=== PATIENT | male | born 1980 | race Caucasian/White ===

== ENCOUNTER 2023-07-11 14:34 | Outpatient (AMB) | payer OTHER, SELFPAY ==
--- NOTE | 2023-07-11 14:37 | AM.OFFWIN_ITS ---
Intake Vital Signs 07/11/23 14:39 Height 5 ft 10.08 in Weight 182 lb 15.739 oz BMI 26.2 BP 112/62 Blood Pressure Location Lt brachial Position Sitting Pulse 70 Pulse Source Pulse Oximeter Temp 97.8 F Temp Source Oral Pulse Oximetry (%) 98 Oxygen Delivery Method Room Air Intake Visit Reasons: [employer] pink eye both eyes Intake Note: pt is here for c/o pnk eyes in both eyes 3 days Patient Tobacco Use Status: Never used Tobacco Allergies No Known Allergies Allergy (Verified 07/11/23 14:37) Do you need a note to return to daycare/school/sports/work: No HPI HPI Comments History of Present Illness Details 43 y/o male [place] speaking patient wh o presents to walk in clinic with c/o URI symptoms. Pt reports that symptoms started few days ago. He also c/o left eye pain and redness since this morning. Denies vision changes. PFSH Social History Patient Tobacco Use Status: Never used Tobacco Review of Systems Const All systems reviewed & are unremarkable except as noted in HPI and below Physical Exam Vital Signs: Last Vital Signs Temp 97.8 F 07/11/23 14:39 Pulse 70 07/11/23 14:39 BP 112/62 07/11/23 14:39 Pulse Ox 98 07/11/23 14:39 Oxygen Delivery Method Room Air 07/11/23 14:39 BMI result Body Mass Index 26.2 Const General: comfortable and no acute distress HEENT Head: Yes normocephalic and Yes atraumatic Ears: external ears normal and TM's normal bilaterally General nose exam: Abnormal mucous membranes and turbinates present boggy and erythematous Face and sinus: Yes sinuses nontender Mouth: moist mucous membranes Throat: Yes posterior oropharynx normal Eyes Eyelids: Yes eyelids normal Conjunctivae: conjunctival abnormal (Redness) left Corneas: corneas normal Pupils: Equal, round and reactive pupils present EOM: EOMs intact bilaterally Direct Ophthalmoscopy: normal light reflex Resp Effort & Inspection: normal respiratory effort and able to speak in complete sentences Auscultation: clear to auscultation bilaterally, no crackles, no rales, no rhonchi and no wheezes Cardio Rate: regular rate Rhythm: regular rhythm Neuro Cranial nerves: Yes Equal, round and reactive pupils present Results AMB Urinalysis, Automated UA Leukoctes 0 Camelia/uL Last Edit by Arthur Ramsey CMA on 07/11/23 14:58 UA Nitrite Negative Last Edit by Arthur Ramsey CMA on 07/11/23 14:58 UA Urobilinogen 0.2 mg/dL Last Edit by Arthur Ramsey CMA on 07/11/23 14 :58 UA Protein 0 mg/dL Last Edit by Arthur Ramsey CMA on 07/11/23 14:58 UA pH 7.5 Last Edit by Arthur Ramsey CMA on 07/11/23 14:58 UA Blood 0 [place]/uL Last Edit by Arthur Ramsey CMA on 07/11/23 14:58 UA Specific [place] 1.015 Last Edit by Arthur Ramsey CMA on 07/11/23 14:58 UA Ketone Negative Last Edit by Arthur Ramsey CMA on 07/11/23 14:58 UA Bilirubin 0 mg/dL Last Edit by Arthur Ramsey CMA on 07/11/23 14:58 UA Glucose 0 mg/dL Last Edit by Arthur Ramsey CMA on 07/11/23 14:58 Results Reviewed Results Reviewed: Laboratory Last Values Urine pH (Auto) 7.5 07/11/23 14:58 Specific [place] (Auto) 1.015 07/11/23 14:58 Urine Protein (Auto) 0 mg/dL 07/11/23 14:58 Glucose (UA)(Auto) 0 mg/dL 07/11/23 14:58 Urine Ketones (Auto) Negative 07/11/23 14:58 Urine Blood (Auto) 0 [place]/uL 07/11/23 14:58 Urine Nitrite (Auto) Negative 07/11/23 14:58 Urine Bilirubin (Auto) 0 mg/dL 07/11/23 14:58 Urine Urobilinogen (Auto) 0.2 mg/dL 07/11/23 14:58 Leukocyte Esterase (Auto) 0 [place]/uL 07/11/23 14:58 Assessment & Plan Assessment & Plan (1) Allergic rhinitis: Code(s): J30.9 - Allergic rhinitis, unspecified Qualifiers: Allergic rhinitis seasonality: seasonal Allergic rhinitis trigger: unspecified Qualified Code(s): J30.2 - Other seasonal allergic rhinitis Plan: - Flonase [place] as directed - OTC cold remedies. - rest (2) Conjunctivitis: Code(s): H10.9 - Unspecified conjunctivitis Qualifiers: Acute conjunctivitis type: unspecified Conjunctivitis type: acute [place]ality: left Qualified Code(s): H10.32 - Unspecified acute conjunctivitis, left eye Plan: - Wash eyes with warm water - Keep eyes clean and dry - Avoid rubbing eyes Orders: Orders AMB Urinalysis Automated Today Z13.9 - Encounter for screening, unspecified Medications: New ciprofloxacin HCl 0.3% 1 drp ophthalmic (eye) Q4H 5 days 5 mL 0RF fluticasone propionate 50 mcg/actuation administer into each nostril 1 spray intranasal BID PRN 16 grams 0RF nasal congestion J30.2 - Other seasonal allergic rhinitis Coding Level of Care Code New Pt Level 3 (35727) Diagnoses Seasonal allergic rhinitis, unspecified trigger J30.2 Allergic rhinitis seasonality: seasonal Allergic rhinitis trigger: unspecified Acute conjunctivitis of left eye, unspecified acute conjunctivitis type H10.32 Acute conjunctivitis type: unspecified Conjunctivitis type: acute Laterality: left Time Spent (min) 15
[2023-07-11 14:39] VITALS: BP 112/62; PULSE 70; TEMP 36.6; O2SAT 98; BMI 26.2
== END 2023-07-11 15:20 | disposition home or self-care (01) ==
PROVIDERS: Visit Provider Nurse Practitioner Family
DX: J30.2 Other seasonal allergic rhinitis (principal); H10.32 Unspecified acute conjunctivitis, left eye; Z13.9 Encounter for screening, unspecified
CPT/HCPCS: 81003; 99203